=== PATIENT | male | born 1940 | race Caucasian/White ===

== ENCOUNTER 2017-11-02 20:33 | Emergency (ER) | payer OTHER ==
[~2017-11-02] VITALS: Ht 177.8 cm; Wt 84.4 kg
[2017-11-02] MEDS ORDERED: FLECAINIDE ACET50 M1 (20:49)
[2017-11-02] MEDS ORDERED: SYMBICORT160 MCG/4. (20:49)
[2017-11-02] MEDS ORDERED: ZOCOR 20 MG TAB20 M1 (20:49)
[2017-11-02] MEDS ORDERED: KEFLEX500 M1 PO (21:00)
[2017-11-02] MEDS ORDERED: TRIAMCINOLONE A80 G2 TOP (21:00)
[2017-11-02 21:14] VITALS: BP 128/62
== END 2017-11-02 21:15 | disposition home or self-care (01) ==
LOC: M.ERS 20:33
DX: L29.9 Pruritus, unspecified (principal); I48.91 Unspecified atrial fibrillation; J44.9 Chronic obstructive pulmonary disease, unspecified; Z90.89 Acquired absence of other organs; Z88.6 Allergy status to analgesic agent